=== PATIENT | male | born 2000 | race Caucasian/White ===

== ENCOUNTER → 2023-12-04 09:58 | Outpatient (REF) | payer BC, SELFPAY ==
[2023-12-04 11:14] LABS: Hemoglobin 16.2 g/dL (13.0-18.0); Mean Corp Hgb Conc. 33.1 g/dL (33.0-37.0); Mean Corpuscular Hgb 30.2 pg (27.0-31.0); Mean Corpuscular Volume 91.2 fL (80.0-94.0); Platelet Count 210 10^3/uL (130-400); Red Blood Cell Count 5.37 10^6/uL (4.70-6.10); Red Cell Dist. Width 12.5 % (11.5-14.5); White Blood Cell Count 6.3 10^3/uL (4.8-10.8)
[2023-12-04 11:45] LABS: ALT (SGPT) 15 U/L (0-50); AST (SGOT) 23 U/L (17-59); Albumin 4.6 g/dl (3.5-5.0); Alkaline Phosphatase 60 U/L (38-126); Blood Urea Nitrogen 11 mg/dl (9-20); Calcium 9.8 mg/dl (8.4-10.2); Carbon Dioxide 31 mmol/L (22-30); Chloride 102 mmol/L (98-107); Glucose 97 mg/dl (70-99); HDL Cholesterol 57 mg/dl; LDL Cholesterol, Calculated 110 mg/dl; Potassium 4.4 mmol/L (3.5-5.1); Sodium 141 mmol/L (135-145); Total Bilirubin 0.5 mg/dl (0.2-1.3); Total Cholesterol 182 mg/dl (50-199); Total Protein 7.5 g/dl (6.3-8.2); Triglyceride 78 mg/dl (10-149); Very Low Density Lipoprotein 15 mg/dl (0-30); eGFR > 60.00
[2023-12-04 11:59] LABS: Glycohemoglobin (HgbA1c) 5.8 % (4.0-5.6)
[2023-12-04 12:17] LABS: TSH Reflex To Free T4 1.05 uIU/ml (0.47-4.68)
== END ==
LOC: REG 09:58
PROVIDERS: ATTENDING PHYSICIAN Physician Assistant Medical
DX: Z00.00 Encounter for general adult medical examination without abnormal findings (principal); K63.89 Other specified diseases of intestine; F41.9 Anxiety disorder, unspecified; F32.9 Major depressive disorder, single episode, unspecified; R73.03 Prediabetes
CPT/HCPCS: 36415; 80053; 80061; 83036; 84443; 85027

== ENCOUNTER → 2024-04-15 06:26 | Day surgery (SDC) | payer BC, SELFPAY | LOC: GI 06:26 | PROVIDERS: ATTENDING PHYSICIAN Specialist | DX: D12.2 Benign neoplasm of ascending colon (principal); D12.3 Benign neoplasm of transverse colon; K62.1 Rectal polyp; R19.7 Diarrhea, unspecified | CPT/HCPCS: 45385; 45380; 88305 ==

== ENCOUNTER → 2024-09-02 11:57 | Outpatient (REF) | payer BC, SELFPAY ==
[2024-09-02 12:43] LABS: Urine Albumin Negative (Neg - Trace); Urine Bilirubin Negative (Negative); Urine Character Clear (Clear); Urine Color Yellow; Urine Glucose Negative (Negative); Urine Ketone Negative (Negative); Urine Leukocyte Negative (Negative); Urine Nitrite Negative (Negative); Urine Occult Blood Negative (Negative); Urine Urobilinogen Negative (Neg - 1+)
== END ==
LOC: REG 11:57
PROVIDERS: ATTENDING PHYSICIAN Family Medicine
DX: N34.2 Other urethritis (principal); Z11.3 Encounter for screening for infections with a predominantly sexual mode of transmission
CPT/HCPCS: 81003; 87491; 87591

== ENCOUNTER → 2024-11-12 10:48 | Outpatient (REF) | payer BC, SELFPAY ==
[2024-11-12 11:56] LABS: % Basophils 0.7 % (0-2); % Eosinophils 1.3 % (0-6); % Immature Granulocytes 0.2 % (0-0.5); % Lymphocytes 36.5 % (20.5-51.1); % Monocytes 6.8 % (1.7-9.3); % Neutrophils 54.5 % (42.2-75.2); Absolute Eosinophils 0.1 10^3/uL (0-0.7); Absolute Monocytes 0.4 10^3/uL (0.1-0.6); Absolute Neutrophils 3.1 10^3/uL (1.4-6.5); Hematocrit 45.2 % (39.0-52.0); Hemoglobin 15.2 g/dL (13.0-18.0); Mean Corp Hgb Conc. 33.6 g/dL (33.0-37.0); Mean Corpuscular Hgb 29.7 pg (27.0-31.0); Mean Corpuscular Volume 88.3 fL (80.0-94.0); Mean Platelet Volume 11.4 fL (7.4-10.4); Nucleated Red Blood Cells % 0 % (-); Platelet Count 199 10^3/uL (130-400); Red Blood Cell Count 5.12 10^6/uL (4.70-6.10); Red Cell Dist. Width 12.8 % (11.5-14.5); White Blood Cell Count 5.6 10^3/uL (4.8-10.8)
[2024-11-12 12:23] LABS: ALT (SGPT) 14 U/L (0-50); AST (SGOT) 19 U/L (17-59); Albumin 4.9 g/dl (3.5-5.0); Alkaline Phosphatase 52 U/L (38-126); Blood Urea Nitrogen 12 mg/dl (9-20); Calcium 9.4 mg/dl (8.4-10.2); Carbon Dioxide 29 mmol/L (22-30); Chloride 104 mmol/L (98-107); Glucose 93 mg/dl (70-99); HDL Cholesterol 50 mg/dl; LDL Cholesterol, Calculated 110 mg/dl; Potassium 4.3 mmol/L (3.5-5.1); Sodium 142 mmol/L (135-145); Total Bilirubin 0.9 mg/dl (0.2-1.3); Total Cholesterol 168 mg/dl (50-199); Total Protein 7.4 g/dl (6.3-8.2); Triglyceride 43 mg/dl (10-149); Very Low Density Lipoprotein 8 mg/dl (0-30); eGFR > 60.00
[2024-11-12 12:44] LABS: Erythrocyte Sed Rate 2 mm/hour (0-20)
[2024-11-12 12:46] LABS: Vitamin D, 25-OH*** 33.9 ng/mL (30-80)
[2024-11-12 13:17] LABS: Vitamin B12 347 pg/ml (239-931)
[2024-11-12 14:26] LABS: Glycohemoglobin (HgbA1c) 5.4 % (4.0-5.6)
[2024-11-14 10:41] LABS: ANA, IgG Reflex to HEp-2 None Detected (None Detected)
[2024-11-14 13:52] LABS: Lyme Antibody Screen, EIA Negative (Negative)
== END ==
LOC: REG 10:48
PROVIDERS: ATTENDING PHYSICIAN Physician Assistant Medical
DX: R53.82 Chronic fatigue, unspecified (principal); R41.89 Other symptoms and signs involving cognitive functions and awareness; R42 Dizziness and giddiness
CPT/HCPCS: 36415; 80053; 80061; 82306; 82607; 83036; 83735; 84443; 85025; 85652; 86038; 86140; 86618

== ENCOUNTER → 2024-12-19 11:11 | Outpatient (REF) | payer BC, SELFPAY | LOC: CLAB 11:11 | PROVIDERS: ATTENDING PHYSICIAN Emergency Medicine | DX: R39.9 Unspecified symptoms and signs involving the genitourinary system (principal) | CPT/HCPCS: 87086; 87491; 87591 ==

== ENCOUNTER 2025-06-08 18:05 | Emergency (ER) | payer MEDICARE, SELFPAY ==
[2025-06-08 18:11] VITALS: BP 151/95
[2025-06-08 18:24] LABS: Hematocrit 45.1 % (39.0-52.0); Hemoglobin 15.2 g/dL (13.0-18.0); Mean Corp Hgb Conc. 33.7 g/dL (33.0-37.0); Mean Corpuscular Volume 86.9 fL (80.0-94.0); Nucleated Red Blood Cells % 0 % (-); Platelet Count 211 10^3/uL (130-400); Red Cell Dist. Width 12.5 % (11.5-14.5)
[2025-06-08 18:47] LABS: ALT (SGPT) 15 U/L (0-50); AST (SGOT) 18 U/L (17-59); Albumin 4.5 g/dl (3.5-5.0); Alkaline Phosphatase 69 U/L (38-126); Blood Urea Nitrogen 7 mg/dl (9-20); Calcium 9.4 mg/dl (8.4-10.2); Carbon Dioxide 30 mmol/L (22-30); Chloride 99 mmol/L (98-107); Glucose 117 mg/dl (70-99); Potassium 4.0 mmol/L (3.5-5.1); Sodium 135 mmol/L (135-145); Total Protein 7.4 g/dl (6.3-8.2); eGFR > 60.00
--- NOTE | 2025-06-08 19:07 | ED.GENMED ---
History of Present Illness
General
Chief Complaint: Throat Problem
Source: patient
Exam Limitations: none
Time Seen by Provider: 06/08/25 18:24
History of Present Illness
History of Present Illness:
Patient is a 24-year-old male with remote history of mononucleosis as a teenager who presents to the emergency department for evaluation of worsening throat pain. Patient reports that symptoms started 4 days ago and he just felt unwell in general.
He reports the following day he developed throat pain associated with low-grade fever, chills, body aches, and significant fatigue. Patient denies any nasal congestion, rhinorrhea, cough. Patient endorses some nausea but denies abdominal pain or
vomiting. Patient went to urgent care yesterday and was tested for COVID-19, influenza, and also had a rapid strep performed. All of the patient's testing was negative and he was advised that it was likely viral and he was discharged. Patient
reports that he woke up this morning with persistent throat pain, severe fatigue, and a rash to his neck and decided to return to the emergency department for further evaluation and concerns that he may have mononucleosis. Patient reports he has
been taking ibuprofen and Tylenol with minimal improvement in his pain. Patient reports that he is able to swallow liquids and his own saliva. He denies any shortness of breath or difficulty breathing.
Past History
Past History
ED Past Medical History: Psychiatric and Other ([facility])
ED Past Surgical History: Appendectomy and Tonsilectomy
Social History
Tobacco: Non-smoker
Review of Systems
Review of Systems
All Other Systems: Not applicable
Constitutional: Reports fever, fatigue and chills
EENT: Reports sore throat; Denies tearing or runny nose
Respiratory: Reports no symptoms; Denies cough
Cardiac: Reports no symptoms
ABD/GI: Reports no symptoms
: Reports no symptoms
Musculoskeletal: Reports no symptoms
Skin: Reports no symptoms
Neurological: Reports no symptoms
Endocrine: Reports no symptoms
Hematologic/Lymphatic: Reports no symptoms
Psychiatric: Reports no symptoms
Phy Exam
General Physical Exam
General Presentation: well appearing and no apparent distress
General Skin: warm and dry
General Habitus: normal
General Mental: alert
General Hydration: appears well hydrated
ENT Exam
ENT Exam: EOMI, neck supple, normocephalic and other (posterior pharyngeal erythema with mild tonsillar exudate bilaterally)
Eye Exam
Eye Exam: PERRL, cornea clear and conjunctiva normal
Cardiovascular Exam
Cardiovascular Exam: regular rate/rhythm, no edema, no murmur and normal peripheral pulses
Pulmonary Exam
Pulmonary Exam: lungs clear, no respiratory distress, no rales, no crackles, no rhonchi, no stridor, no wheezing and no cough
Gastrointestinal Exam
Gastrointestinal Exam: normal bowel sounds, non tender, soft, no organomegaly, no pulsatile mass and non distended
Neurological Exam
Neurological Exam: alert, oriented x3, no motor deficits and speech normal
Musculoskeletal Exam
Musculoskeletal Exam: full ROM and no edema
Skin Exam
Skin Exam: normal color, warm/dry, no rash and no petechia
Psychiatric Exam
Psychiatric Exam: normal mood/affect
Sepsis
Sepsis Screening
Sepsis Assessment: Sepsis Ruled Out
Sepsis Screen
Sepsis Screen: Sepsis Ruled Out
Date: 06/09/25
Time: 01:03
Course
Orders/Labs/Results
Orders:
Orders
06/08/25 18:16
Complete Blood Count/With Diff Urgent
Comprehensive Metabolic Panel Urgent
Monotest Urgent
Abnormal Lab Results
06/08/25
18:16
WBC 12.0 H 10^3/uL
(4.8-10.8)
Absolute Neuts (auto) 9.4 H 10^3/uL
(1.4-6.5)
Absolute Monos (auto) 1.0 H 10^3/uL
(0.1-0.6)
Neutrophils % 78.0 H %
(42.2-75.2)
Lymphocytes % 11.6 L %
(20.5-51.1)
BUN 7 L mg/dl
(9-20)
Glucose 117 H mg/dl
(70-99)
06/08/25 18:16
06/08/25 18:16
Vital Signs
Initial and Last Documented VS:
Initial Vital Signs
Temp Pulse Resp BP Pulse Ox
98.7 F 105 16 151/95 100
06/08/25 18:11 06/08/25 18:11 06/08/25 18:11 06/08/25 18:11 06/08/25 18:11
Last Documented Vital Signs
Temp Pulse Resp BP Pulse Ox
98.7 F 105 16 151/95 100
06/08/25 18:11 06/08/25 18:11 06/08/25 18:11 06/08/25 18:11 06/08/25 19:10
*Pulse Oximetry
SaO2: 100
Oxygen Mode of Delivery: Room air
Patient hypoxic: no
*Critical Care Note
Total Time (30-74mins, 75-104mins- exclusive of procedures): Not Applicable
Update Note
Update Note:
24 yo male p/w worsening throat pain associated with low-grade fevers for the past few days. Pt with negative COVID-19, rapid strep, flu testing at an outpatient facility. On arrival, pt is moderately hypertensive, afebrile. On exam, pt is
well-appearing and in NAD, he is tolerating oral secretions, he has no trismus, he has moderate pharyngeal erythema with mild tonsillar edema and exudate. Labs notable for mild leukocytosis with left shift. Monospot is negative. Remainder of the
pt's labs are non-actionable. I am suspicious for strep pharyngitis despite negative rapid strep, given exam and Centor score. At this time, will provide the patient with a prescription for amoxicillin. Patient is safe for discharge to home with
instructions on continued supportive care measures, use of ibuprofen and Tylenol, outpatient PCP f/u to ensure improvement in his symptoms, along with strict return precautions. Pt expressed understanding of the plan and agreed.
ED Attending Note
-
Portions of this chart may have been created with voice recognition software.� Occasional wrong word or��sound alike� substitutions may have occurred due to the inherent limitations of voice recognition software.
Discharge Plan
Departure
Patient Disposition: Home (Routine Discharge)
Date of Disposition: 06/08/25
Time of Disposition: 19:26
Patient with high blood pressure during this ER visit?: Yes
Condition: Good
Covid-19: Not Applicable
Discharge Problem:
Pharyngitis
Instructions: Sore Throat, Adult (DC), Strep Throat (DC)
Prescriptions:
New
amoxicillin 500 mg tablet
500 mg PO Q12H 10 Days Qty: 20 0RF
No Action
rifaximin [Xifaxan] 550 MG tablet
550 mg PO TID Qty: 42 0RF
Referrals:
Berenice Carrillo PA-C [Family Provider, Family Practice] - Follow up in 2-3 days
Stand Alone Forms: Return to Work
Activity Restrictions/Additional Instructions:
You were seen in the emergency department for evaluation of throat pain associated with a rash. While you were in the emergency department your blood work did not show any dangerous abnormalities and your Monospot was negative. We suspect that you
could still have strep throat which may be causing a rash also known as scarlet fever. We are prescribing you a course of antibiotics. Please take them all exactly as directed, even if you start to feel better. You may take ibuprofen 600 mg every
6 hours for pain and inflammation. You may add on Tylenol 650 mg every 4-6 hours if needed for additional pain relief. Please try to get right plenty of rest and drink plenty of fluids. Please follow-up with your primary care provider to ensure
resolution of your symptoms. Please return to the emergency department if you are unable to swallow liquids or your own saliva, develop shortness of breath or difficulty breathing, or for any other worsening or concerning symptoms.
Interventions
Interventions:
*Risk Screen - Suicide Last Done: 06/08/25 18:13
*General Assessment Last Done: 06/08/25 18:30
*Neglect/Abuse Screening Last Done: 06/08/25 18:13
*ED COVID-19 Vaccine History Last Done: 06/08/25 18:30
*ED Influenza Vaccine History Last Done: 06/08/25 18:30
[facility] Fall Risk Assessment Tool Last Done: 06/08/25 18:30
*Nursing Disposition Last Done: 06/08/25 19:37
ED-EENT Assessment Last Done: 06/08/25 18:30
ED- Pulmonary Assessment Last Done: 06/08/25 18:30
Discharge Date and Time
Discharge Date/Time: 06/08/25 19:38
Print Language: CROATIAN
== END 2025-06-08 19:38 | disposition home or self-care (01) ==
LOC: EMR 18:05
PROVIDERS: EMERGENCY PHYSICIAN Emergency Medicine; FAMILY PHYSICIAN Physician Assistant Medical
DX: J02.9 Acute pharyngitis, unspecified (principal); R03.0 Elevated blood-pressure reading, without diagnosis of hypertension
CPT/HCPCS: 99283; 80053; 85025; 86308